=== PATIENT | female | born 1960 | race Two or more races ===

== ENCOUNTER 2023-11-26 07:29 | Emergency (ER) | payer OTHER ==
[2023-11-26] MEDS ORDERED: Sodium Chloride 0.9% 1,000 ML IV ONE (08:09)
== END 2023-11-26 08:50 | disposition home or self-care (01) ==
LOC: JD.ED 07:29
DX: K59.09 Other constipation (principal)
CPT/HCPCS: 99283

== ENCOUNTER 2023-12-20 14:23 | Emergency (ER) | payer OTHER ==
[2023-12-20] MEDS: Lactulose Soln 10 GM/15 ML 30 ML UD Cup PO ONE (16:44)
[2023-12-20] MEDS: Sodium Chloride 0.9% 1,000 ML IV ONE ×2 (16:45→18:02)
[2023-12-20] MEDS: Polyethylene Glycol/Electrolytes 4,000 ML Bottle PO ONE (18:02)
== END 2023-12-20 21:55 | disposition home or self-care (01) ==
LOC: JD.ED 14:23
DX: K59.01 Slow transit constipation (principal); Z86.16 Personal history of COVID-19
CPT/HCPCS: 96360; 96361; 99283; A9270; J7030